=== PATIENT | male | born 1960 | race Two or more races ===

== ENCOUNTER 2022-08-19 10:18 | Emergency (ER) | payer MEDICARE, MEDICAID ==
[~2022-08-19] VITALS: Ht 177.8 cm; Wt 100.0 kg
[2022-08-19 10:46] VITALS: BP 181/111
[2022-08-19 12:42] LABS: BASOPHILS % 0.5 % (0.0-2.0); EOSINOPHILS % 0.2 % (0.0-5.0); HEMATOCRIT. 43.9 % (42.0-52.0); HEMOGLOBIN. 14.7 g/dL (14.0-18.0); LYMPHOCYTES % 14.8 % (20.0-50.0); MEAN CORPUSCULAR HEMOGLOBIN 29.8 pg (28.0-32.0); MEAN CORPUSCULAR VOLUME 88.9 fL (80.0-94.0); MEAN PLATELET VOLUME 9.2 fl (7.4-10.4); MONOCYTES % 5.8 % (2.0-8.0); NEUTROPHILS % 78.7 % (40.0-76.0); PLATELET 284 x1000/uL (130-400); RED BLOOD CELL COUNT 4.94 mill/uL (4.7-6.1); RED CELL DISTRIBUTION WIDTH 14.6 % (11.6-14.6)
[2022-08-19 12:59] LABS: CHLORIDE 99 mEq/L (98-107)
[2022-08-19] MEDS ORDERED: HYDROCHLOROTHIAZIDE 12.5MG CAPSULE PO ONE (14:15)
[2022-08-19] MEDS ORDERED: LISINOPRIL 20MG TABLET PO ONE (14:15)
[2022-08-19] MEDS ORDERED: AMLODIPINE 5MG TABLET PO ONE (14:15)
[2022-08-19] MEDS ORDERED: METOPROLOL TARTRATE 25MG TABLET PO ONE (14:15)
[2022-08-19 15:34] LABS: INR 1.1; PROTHROMBIN TIME 11.3 sec (9.6-11.0)
== END 2022-08-19 15:56 | disposition home or self-care (01) ==
LOC: ER 10:56
DX: I10 Essential (primary) hypertension (principal); R04.0 Epistaxis; Z91.199 Patient's noncompliance with other medical treatment and regimen due to unspecified reason
CPT/HCPCS: 36415; 80048; 85025; 86850; 86900; 99284